=== PATIENT | male | born 1945 | race Caucasian/White ===

== ENCOUNTER → 2019-11-01 | Outpatient (CLI) | payer OTHER ==
--- NOTE | 2019-11-01 14:11 | 2DMMODE ---
[facility] [place] [address] 2 D/M-MODE ECHOCARDIOGRAM Name: MISSY GAGNON Room #: REG [facility]#: [id number] Admission: 11/01/19 Attend Phys: Alan Gallardo MD Discharge: Date of : 49 Report #: [id number] THIS REPORT FOR: cc: HEBER HERZOG MD, BRADLEY W. MD Park, Jin S. MD ~ APPROVED REPORT Study performed: 11/01/2019 13:18:27 EXAM: Comprehensive 2D, Doppler, and color-flow Echocardiogram Patient Location: Out-Patient Status: routine BSA: 2.20 HR: 86 bpm BP: 128/84 mmHg Rhythm: NSR Other Information Study Quality: Adequate/lung interference. Indications CAD. Hx: stents, HTN, HLP, DM, tob, morbid obesity. 2D Dimensions RVDd: 33.01 mm IVSd: 14.10 (7-11mm) LVOT Diam: 23.97 (18-24mm) LVDd: 40.68 mm PWd: 12.00 (7-11mm) Ascending Ao: 30.18 (22-36mm) LVDs: 26.45 (25-40mm) Volumes Left Atrial Volume (Systole) Single Plane 4CH: 32.03 mL Single Plane 2CH: 41.25 mL LA ESV Index: 19.00 mL/m2 Aortic Valve AoV Peak Buck.: 1.57 m/s AO Peak Gr.: 9.84 mmHg LVOT Max P.32 mmHg LVOT Max V: 1.04 m/s BILL Vmax: 2.99 cm2 Mitral Valve [facility] [address] [address] 2 D/M-MODE ECHOCARDIOGRAM Name: MISSY GAGNON Room #: REG [facility]#: [id number] Admission: 11/01/19 Attend Phys: Alan Gallardo MD Discharge: Date of : 49 Report #: [id number] E/A Ratio: 0.7 MV Decel. Time: 246.01 ms MV E Max Buck.: 0.90 m/s MV A Buck.: 1.24 m/s MV PHT: 71.34 ms IVRT: 86.51 ms Pulmonary Valve PV Peak Buck.: 0.86 m/s PV Peak Gr.: 2.97 mmHg Tricuspid Valve TR Peak Buck.: 2.26 m/s RAP Estimate: 5.00 mmHg TR Peak Gr.: 20.35 mmHg PA Pressure: 25.00 mmHg Left Ventricle The left ventricle is normal size. There is normal LV segmental wall motion. Mild concentric left ventricular hypertrophy. Left ventricular systolic function is normal. LVEF is 60-65%. Mild diastolic dysfunction is present (impaired relaxation pattern). Right Ventricle The right ventricle is normal size. The right ventricular systolic function is normal. Atria The left atrium size is normal. The right atrium size is normal. Aortic Valve Aortic valve is calcified. No aortic regurgitation is present. There is no aortic valvular stenosis. Mitral Valve The mitral valve is normal in structure. There is no mitral valve regurgitation noted. No evidence of mitral valve stenosis. Tricuspid Valve The tricuspid valve is normal in structure. Trace tricuspid regurgitation. Estimated PAP is 25mmHg. Pulmonic Valve The pulmonary valve is normal in structure. Trace pulmonic regurgitation. [facility] [place] [address] 2 D/M-MODE ECHOCARDIOGRAM Name: KALINMISSY Room #: REG [facility]#: [id number] Admission: 11/01/19 Attend Phys: Alan Gallardo MD Discharge: Date of : 49 Report #: [id number] Great Vessels Aortic root is borderline dilated. The ascending aorta is normal in size. IVC is normal in size and collapses >50% with inspiration. Pericardium There is no pericardial effusion. <Conclusion> The left ventricle is normal size. Mild concentric left ventricular hypertrophy. Left ventricular systolic function is normal. Mild diastolic dysfunction is present (impaired relaxation pattern). The right ventricle is normal size. Aortic valve is calcified. The mitral valve is normal in structure. Trace tricuspid regurgitation. Estimated PAP is 25mmHg. <ELECTRONICALLY SIGNED> By: Michael Baez MD 11/01/19 1411 [id number] Michael Baez MD /DONA
== END ==
LOC: CV 07-30 13:05
PROVIDERS: ATTEND Orthopaedic Surgery
DX: I35.8 Other nonrheumatic aortic valve disorders (principal); E78.5 Hyperlipidemia, unspecified; E11.9 Type 2 diabetes mellitus without complications; I11.9 Hypertensive heart disease without heart failure; I25.10 Atherosclerotic heart disease of native coronary artery without angina pectoris; Z87.891 Personal history of nicotine dependence